=== PATIENT | female | born 1940 | race Caucasian/White ===

== ENCOUNTER 2017-05-21 06:47 | Day surgery (SDC) | payer OTHER | END 2017-05-21 11:45 | disposition home or self-care (01) | LOC: AMB-ENDOS 06:47 | DX: K57.30 Diverticulosis of large intestine without perforation or abscess without bleeding (principal); K64.8 Other hemorrhoids ==

== ENCOUNTER 2019-02-10 11:37 | Emergency (ER) | payer OTHER ==
[~2019-02-10] VITALS: Ht 152.4 cm; Wt 68.0 kg
[2019-02-10] MEDS ORDERED: AVAPRO300 MG (12:07)
[2019-02-10] MEDS ORDERED: GLIMEPIRIDE1 MG (12:07)
[2019-02-10] MEDS ORDERED: PROTONIX40 MG (12:11)
[2019-02-10] MEDS ORDERED: AZOR 5-20 MG T1 EACH (12:12)
[2019-02-10] MEDS ORDERED: FENOFIBRIC ACI105 MG (12:12)
[2019-02-10] MEDS ORDERED: HYDROCHLOROTHIAZ1 GM (12:12)
== END 2019-02-10 18:30 | disposition home or self-care (01) ==
LOC: ER 11:37
DX: A08.8 Other specified intestinal infections (principal); E86.0 Dehydration; D64.89 Other specified anemias; I88.8 Other nonspecific lymphadenitis; R10.12 Left upper quadrant pain; Z90.49 Acquired absence of other specified parts of digestive tract; Z90.710 Acquired absence of both cervix and uterus

== ENCOUNTER 2019-05-25 15:33 | Emergency (ER) | payer OTHER ==
[~2019-05-25] VITALS: Ht 154.9 cm; Wt 70.8 kg
[~2019-05-25 15:33] MED LIST: AVAPRO300 MG; AZOR 5-20 MG T1 EACH; FENOFIBRIC ACI105 MG; GLIMEPIRIDE1 MG; HYDROCHLOROTHIAZ1 GM; PROTONIX40 MG
== END 2019-05-25 20:58 | disposition home or self-care (01) ==
LOC: ER 15:33
DX: K52.89 Other specified noninfective gastroenteritis and colitis (principal)

== ENCOUNTER → 2019-06-17 | Outpatient (CLI) | payer OTHER ==
[~2019-06-17] MED LIST changes: +CANDESARTAN-HC1 EAC1 PO; +GLIMEPIRIDE1 M1 PO; +HORIZANT300 MG PO; +HYDRALAZINE HCL25 MG PO; +MAG PO; +MICROZIDE12.5 MG PO; +PLAVIX75 MG PO; +PROBIO PO; +SUPER B-50 COM1 EACH PO
== END | disposition home or self-care (01) ==
LOC: EKG 06:00 → ADM 10:30 → EDSTATUS 06-23 10:30 → CIR.AMB 06-23 10:30 → ADM 06-23 10:30
DX: R15.9 Full incontinence of feces (principal); Z01.810 Encounter for preprocedural cardiovascular examination

== ENCOUNTER 2020-11-15 07:38 | Day surgery (SDC) | payer OTHER | END 2020-11-15 10:45 | disposition home or self-care (01) | LOC: AMB-ENDOS 07:38 | PROVIDERS: ATTEND Colon & Rectal Surgery | DX: K62.89 Other specified diseases of anus and rectum (principal); K64.8 Other hemorrhoids; Z20.822 Contact with and (suspected) exposure to COVID-19; Z12.11 Encounter for screening for malignant neoplasm of colon ==

== ENCOUNTER 2021-04-30 14:51 | Inpatient (IN) | payer OTHER ==
[~2021-04-30] VITALS: Ht 154.9 cm; Wt 5.0 kg
[2021-04-30] MEDS ORDERED: METOPROLOL SUCC25 MG PO (15:04)
[2021-04-30] MEDS ORDERED: MAGNESIUM OXID500 MG PO (15:05)
[2021-04-30] MEDS ORDERED: FENOFIBRATE134 MG PO (15:05)
[2021-04-30] MEDS ORDERED: PANTOPRAZOLE SO40 MG PO (15:06)
--- NOTE | 2021-04-30 15:07 | NUR ---
SE RECIBE PTE ALERTA Y ORIENTADA X3 QUIEN REFIERE VENIR REFERIDA DEL DR ADAM URRUTIA POR ANEMIA DE 8.4. SE MONITOREAN S/V Y SE UBICA.
--- NOTE | 2021-04-30 16:25 | NUR ---
MRS. CADETA PTE SOOBRE [place] MEDICO ESTA REFIERE ENTENDER. SE CAROLYN MUESTRAS D LABORATORIO UTILIZANDO MEDIDAS ASEPTICAS. SE COLOCA H/L EL CUAL; SE ENCUENTRA PATENTE.
--- NOTE | 2021-04-30 17:47 | NUR ---
SE REALIZAN MUESTRAS DE CULTIVOS DE [place] POR ORDEN MEDICA, SE ENTREGA EMBACE DE ORINA PARA CULTIVO.
--- NOTE | 2021-04-30 17:50 | NUR ---
SE REALZIA LLAMADA A BANCO DE [place] Y SE LOGRA CONTACTO CON [facility]. BAUSO PARA NOTIFICAR ORDEN DE PACIENTE SE 3 UNIDADES DE PRBC PARA TRANFUNDIR, SE NOTIFICA QUE SE TOMARON TUBOS PILOTOS Y SERAN ENVIADOS. PACIENTE AL MOMENTO SE MANTIENE EN OBSERVACION POR ORDEN MEDICA.
[2021-05-01] MEDS ORDERED: CANDESARTAN CILE4 MG (08:38)
[2021-05-01] MEDS ORDERED: GABAPENTIN300 M2 (08:39)
[2021-05-01] MEDS ORDERED: SERTRALINE HCL50 MG (08:39)
[2021-05-01] MEDS ORDERED: CLOPIDOGREL BIS75 MG (08:39)
[2021-05-16] MEDS ORDERED: FOLIC ACID0.8 M1 PO (17:44)
[2021-05-16] MEDS ORDERED: VITAMIN B-122500 MCG SL (17:44)
[2021-05-16] MEDS ORDERED: INTEGRA PLUS C1 EACH PO (17:44)
== END 2021-05-16 18:30 | disposition home or self-care (01) | DRG 812 ==
LOC: ER 14:51 → MEDJ 23:29 → MEDI 23:29 → SEC-K 05-01 00:20 → MEDJ 05-01 10:27
PROVIDERS: ADMIT Internal Medicine; ATTEND Internal Medicine
PROC: 30233N1 Transfusion of Nonautologous Red Blood Cells into Peripheral Vein, Percutaneous Approach (ICD-10-PCS; 2021-05-01)
PROC: CD171ZZ Planar Nuclear Medicine Imaging of Gastrointestinal Tract using Technetium 99m (Tc-99m) (ICD-10-PCS; 2021-05-01)
PROC: 0DJD8ZZ Inspection of Lower Intestinal Tract, Via Natural or Artificial Opening Endoscopic (ICD-10-PCS; principal; 2021-05-04)
PROC: BW2510Z Computerized Tomography (CT Scan) of Chest, Abdomen and Pelvis using Low Osmolar Contrast, Unenhanced and Enhanced (ICD-10-PCS; 2021-05-05)
PROC: 02HV33Z Insertion of Infusion Device into Superior Vena Cava, Percutaneous Approach (ICD-10-PCS; 2021-05-06)
PROC: B24BYZZ Ultrasonography of Heart with Aorta using Other Contrast (ICD-10-PCS; 2021-05-06)
PROC: 0JB83ZX Excision of Abdomen Subcutaneous Tissue and Fascia, Percutaneous Approach, Diagnostic (ICD-10-PCS; 2021-05-11)
DX: D50.0 Iron deficiency anemia secondary to blood loss (chronic) (principal); C49.A3 Gastrointestinal stromal tumor of small intestine; D63.8 Anemia in other chronic diseases classified elsewhere; K63.89 Other specified diseases of intestine; K52.89 Other specified noninfective gastroenteritis and colitis; K57.30 Diverticulosis of large intestine without perforation or abscess without bleeding; R19.5 Other fecal abnormalities; I35.0 Nonrheumatic aortic (valve) stenosis; I11.9 Hypertensive heart disease without heart failure; E11.9 Type 2 diabetes mellitus without complications; E78.00 Pure hypercholesterolemia, unspecified; G47.33 Obstructive sleep apnea (adult) (pediatric); Z99.89 Dependence on other enabling machines and devices; Z86.010 Personal history of colon polyps; Z90.49 Acquired absence of other specified parts of digestive tract; Z79.4 Long term (current) use of insulin